=== PATIENT | male | born 1980 | race African-American/Black ===

== ENCOUNTER 2020-01-29 21:26 | Emergency (ER) | payer OTHER ==
[~2020-01-29] VITALS: Ht 185.4 cm; Wt 94.3 kg
--- NOTE | 2020-01-29 21:50 | NUR ---
Dr. Holloway at bedside for MSE.
--- NOTE | 2020-01-29 22:04 | NUR ---
Patient discharged to home in stable condition. Written and verbal after care instructions given. Patient verbalizes understanding of instructions. Stressed follow up or return to ER for worsening s/s. Patient out of ER with steady gait, no acute signs of distress, VSS, all belongings taken.
[2020-01-29 22:07] VITALS: BP 132/69
[2020-01-31 07:09] LABS: HEPATITIS B SURFACE AB Reactive (.)
== END 2020-01-29 22:07 | disposition home or self-care (01) ==
LOC: ER 21:29
DX: Z04.2 Encounter for examination and observation following work accident (principal); Z77.21 Contact with and (suspected) exposure to potentially hazardous body fluids
CPT/HCPCS: 36415; 86704; 86706; 86803; 87806; A4663